=== PATIENT | male | born 1975 | race Caucasian/White ===

== ENCOUNTER 2025-04-14 20:46 | Emergency (ER) | payer MEDICAID, SELFPAY ==
[2025-04-14 20:48] VITALS: BP 160/92; PULSE 77; RESP 18; TEMP 36.4; O2SAT 100; BMI 21.9
[2025-04-14 21:36] LABS: Hematocrit 42.4 % (40-54); Hemoglobin 14.4 g/dL (13.0-16.5); Immature Granulocytes Count 0.010 X10^3/uL (0.0-0.0); Mean Corp Hgb Conc 34.0 g/dL (32-36); Mean Corpuscular Volume 94.9 fL (80-94); Mean Platelet Vol. 9.4 fl (6.2-12.0); NRBC Flagged by Analyzer 0 % (0-5); Platelet Count 233 K/mm3 (150-450); RBC Distribution Width CV 13.0 % (11.6-14.6); RBC Distribution Width SD 45.1 fl (35.1-43.9); Red Blood Count 4.47 M/mm3 (4.6-6.2); White Blood Count 6.9 K/mm3 (4.4-11.0)
[2025-04-14 21:52] LABS: AST(SGOT) 24 U/L (<=37); Alanine Aminotransfer ALT/SGPT 16 U/L (<=46); Albumin, Serum 4.7 g/dL (3.5-5.0); Alkaline Phosphatase 73 U/L (40-129); Anion Gap 13 (5-15); BUN 21 mg/dL (4-19); BUN/Creat Ratio 19.9 RATIO (10-20); Calcium,Total 9.9 mg/dL (7.6-11.0); Carbon Dioxide 20.9 mmol/L (21.0-32.0); Chloride 102 mmol/L (98-108); Estimated Creatinine Clearance 91.09 ml/min (50-250); Globulin 3.1 g/dL (2.2-4.2); Glucose 90 mg/dL (70-99); Potassium 4.6 mmol/L (3.3-5.1)
[2025-04-14 21:54] VITALS: BP 147/88; PULSE 82; RESP 16; TEMP 36.6; O2SAT 100
[2025-04-14 22:03] LABS: Alcohol, Blood (Medical)-Serum < 10.1 mg/dL (<=10.0)
--- NOTE | 2025-04-14 22:19 | EX.ED.SAOD ---
HPI History of Present Illness Chief Complaint: Substance Abuse Narrative Narrative: Patient is a 50-year-old male with history of opioid dependency, hypertension and daily cocaine abuse presenting for request of cocaine withdrawal. Patient states he uses a lot of cocaine daily. Last used today. He admits to tobacco use denies any alcohol use or other coingestants. Has no physical complaints. Was taken off Suboxone suddenly about a week and a half ago because he tested positive for cocaine and is not wanting to detox from it/get a refill on his Suboxone. He is presenting with his significant other who is also requesting cocaine detox. [facility] Medical History unable to obtain Home Medications ?Medication ?Instructions ?Recorded ?Last Taken ?Type buprenorphine 8 mg-naloxone 2 mg 3 film sublingual TID 04/14/25 Unknown History sublingual film (Suboxone) gabapentin 800 mg tablet 800 mg PO 4X/DAY 04/14/25 Unknown History lisinopril 10 1 tab PO DAILY 04/14/25 Unknown History mg-hydrochlorothiazide 12.5 mg tablet Allergy/AdvReac Type Severity Reaction Status Date / Time No Known Allergies Allergy Verified 04/14/25 20:47 Family History unable to obtain Surgical History unable to obtain Social History Smoking Status: Current every day smoker tobacco type: cigarettes ROS ROS ED Constitutional Constitutional ED: Denies chills or fever(s) Cardiovascular Cardiovascular: Denies chest pain Respiratory/Chest Respiratory/Chest: Denies dyspnea Gastrointestinal Gastrointestinal: Denies nausea or vomiting Neurologic Neurologic: Denies weakness Psychiatric Psychiatric: Reports other Details: Substance dependence ; Denies anxiety or depression EXAM Physical Exam Const Vital Signs: 04/14/25 20:48 04/14/25 21:54 Temperature 97.6 F L 97.8 F Temperature Source Temporal Pulse Rate 77 82 Respiratory Rate 18 16 Blood Pressure 160/92 H 147/88 H Blood Pressure Mean 114 107 Pulse Ox 100 100 Oxygen Delivery Method Room Air Positive well nourished and well developed General Appearance ED: well developed and NAD HEENT Reports moist mucous membranes atraumatic Neck supple Chest Wall inspection of chest normal Resp normal respiratory effort and clear to auscultation bilaterally Cardio regular rate and regular rhythm GI non-distended Extremity General Extremety ED: Negative for edema General Extremity: Negative for edema Neuro oriented x3 Sensorium / Orientation: alert Motor Exam: Negative for general weakness or muscle tone abnormal Psych mental status grossly normal and thought process normal Skin Lesions: no lesions Rashes: no rashes MDM MDM MDM Narrative Medical decision making narrative: Patient evaluated for cocaine detox request. Upon arrival he is mildly hypertensive but this is downtrending and he is asymptomatic. Protocol for detox labs were obtained. Patient was informed that I will unfortunately do not offer cocaine inpatient detox. I counseled that I do not prescribe Suboxone. Is given information for [facility] for outpatient follow-up. Patient is understanding of this. He has no physical complaints and I think further workup. Denies any chest pain do not think he needs workup for cocaine induced chest pain/ACS. Lab Data Attestation: I reviewed the patient's lab results. Labs: Laboratory Results - last 24 hr 04/14/25 21:18 WBC 6.9 RBC 4.47 L Hgb 14.4 Hct 42.4 MCV 94.9 H MCH 32.2 H MCHC 34.0 RDW Std Deviation 45.1 H RDW Coeff of Ken 13.0 Plt Count 233 MPV 9.4 Immature Gran % (Auto) 0.100 Neut % (Auto) 68.5 Lymph % (Auto) 23.6 [place] % (Auto) 6.3 Eos % (Auto) 0.9 Baso % (Auto) 0.6 Absolute Neuts (auto) 4.8 Absolute Lymphs (auto) 1.64 Nucleated RBC % 0 Sodium 136 Potassium 4.6 Chloride 102 Carbon Dioxide 20.9 L Anion Gap 13 BUN 21 H Creatinine 1.07 Estim Creat Clear Calc 91.09 Est GFR (MDRD) Non-Af 83 BUN/Creatinine Ratio 19.9 Glucose 90 Calcium 9.9 Total Bilirubin 0.33 AST 24 ALT 16 Alkaline Phosphatase 73 Total Protein 7.8 Albumin 4.7 Globulin 3.1 Albumin/Globulin Ratio 1.5 Ethyl Alcohol < 10.1 Discharge Plan Triage Chief Complaint: Substance Abuse ED Provider: Michelle Walker Dx/Rx/DC Orders Clinical Impression: Cocaine dependence Instructions: ED Cocaine And Crack Abuse Prescriptions: No Action buprenorphine-naloxone [Suboxone] 8-2 mg film 3 film sublingual TID Rx Instructions: use only 2 strips/tabs in mouth at one time, 1 under (each) side of tongue lisinopril-hydrochlorothiazide 10-12.5 mg tablet 1 tab PO DAILY gabapentin 800 mg tablet 800 mg PO 4X/DAY Primary Care Provider: Care Physician,No Primary Referrals: Care Physician,No Primary [Primary Care Provider] - [facility] [Non-Staff] - Activity Restrictions/Additional Instructions: We do not offer inpatient cocaine detox unfortunately. You can follow-up with 180 or other substance abuse services. Print Language: Arabic Disposition Disposition: Home, Self Care
[2025-04-14 22:45] LABS: Barbiturate Urine NEGATIVE (< 200 ng/mL); Benzodiazepine Urine NEGATIVE (< 200 ng/mL); PCP Urine NEGATIVE (< 25 ng/mL); THC Urine PRESUMPTIVE POSITIVE (< 50 ng/mL)
== END 2025-04-14 23:19 | disposition home or self-care (01) ==
PROVIDERS: Emergency Provider Emergency Medicine; Visit Provider Emergency Medicine
DX: F14.20 Cocaine dependence, uncomplicated (principal); I10 Essential (primary) hypertension; F17.210 Nicotine dependence, cigarettes, uncomplicated; Z79.899 Other long term (current) drug therapy
CPT/HCPCS: 80053; 80307; 82077; 85025; 99282